=== PATIENT | female | born 1955 | race Caucasian/White ===

== ENCOUNTER 2019-08-10 13:40 | Outpatient (CLI) | payer BC ==
--- NOTE | 2019-08-10 14:22 | BD ---
DEXA BONE DENSITY STUDY: Date: 08/10/2019 HISTORY: Screening for osteoporosis. COMPARISON: 10/26/2016. FINDINGS/IMPRESSION: Lumbar Spine: BMD (g/cm2) L1 0.858 T-Score: -1.2 L2 0.883 T-Score: -1.3 L3 0.778 T-Score: -2.8 L4 0.890 T-Score: -1.6 L1-L4 0.853 T-Score: -1.8 Evidence for osteopenia. Bone mineral density has slightly decreased when compared to prior study, in particular L3. Left Hip: Femoral Neck: 0.748 T-Score: -0.9 Total Femur: 0.889 T-Score: -0.3 Evidence within normal limits. Little change from prior study. FRAX SCORE: Major osteoporotic fracture: 7.3% Hip fracture: 0.5% POS: [facility]
== END 2019-08-10 13:41 | disposition home or self-care (01) ==
LOC: BICMAMMO 13:40
PROVIDERS: ATTEND Student in an Organized Health Care Education/Training Program
DX: Z13.820 Encounter for screening for osteoporosis (principal); M85.88 Other specified disorders of bone density and structure, other site
CPT/HCPCS: 77080

== ENCOUNTER 2023-01-09 07:37 | Outpatient (CLI) | payer MEDICARE ==
[2023-01-09] MEDS ORDERED: Iopamidol 370 76% 100 ML VIAL ONE (09:21)
== END 2023-01-09 07:38 | disposition home or self-care (01) ==
LOC: BICCT 07:37
PROVIDERS: ATTEND Internal Medicine Gastroenterology
DX: R10.13 Epigastric pain (principal); F43.9 Reaction to severe stress, unspecified; K86.2 Cyst of pancreas; E27.8 Other specified disorders of adrenal gland; K76.89 Other specified diseases of liver; D73.89 Other diseases of spleen; N20.0 Calculus of kidney; Z86.010 Personal history of colon polyps
CPT/HCPCS: 74170; Q9967

== ENCOUNTER 2023-01-18 07:25 | Outpatient (CLI) | payer MEDICARE | END 2023-01-18 07:26 | disposition home or self-care (01) | LOC: SCSMRI 07:25 | PROVIDERS: ATTEND Internal Medicine Gastroenterology | DX: K86.2 Cyst of pancreas (principal) | CPT/HCPCS: 74183 ==

== ENCOUNTER 2024-07-17 12:30 | Outpatient (CLI) | payer MEDICARE ==
[2024-07-17] MEDS ORDERED: Magnevist 469MG/ML 20 ML VIAL ONE (13:11)
== END 2024-07-17 12:31 | disposition home or self-care (01) ==
LOC: MRI 12:30
PROVIDERS: ATTEND Internal Medicine Gastroenterology
DX: K86.2 Cyst of pancreas (principal)
CPT/HCPCS: 74183